=== PATIENT | female | born 1965 | race Two or more races ===

== ENCOUNTER 2020-06-16 16:46 | Emergency (ER) | payer MEDICAID, OTHER ==
[~2020-06-16] VITALS: Ht 160 cm; Wt 71.5 kg
--- NOTE | 2020-06-16 17:19 | NUR ---
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
--- NOTE | 2020-06-16 17:29 | NUR ---
PT IN GOWN ON [facility]. STATES SHE HAS HIGH BLOOD PRESSURE IN 200S. PT BP NOW IS 146/83. PT STATES SHE EXPERIENCES DIZZINESS AT HOME. NO GARZA OR VISION CHANGES. DOES NOT TAKE MEDS FOR BP. DENIES CP OR SOB.
[2020-06-16 18:00] LABS: BASOPHILS # (AUTO) 0.04 x10^3/uL (0-0.1); BASOPHILS % (AUTO) 1 % (0-1); EOSINOPHILS # (AUTO) 0.35 x10^3/uL (0-0.4); EOSINOPHILS % (AUTO) 6 % (1-7); LYMPHOCYTES # (AUTO) 2.11 x10^3/uL (1-3.4); LYMPHOCYTES % (AUTO) 39 % (22-44); MD NO; MEAN CORPUSCULAR HEMOGLOBIN 30.3 pg (27.0-34.8); MEAN CORPUSCULAR HGB CONC 32.9 g/dL (32.4-35.8); MEAN PLATELET VOLUME 7.7 fL (7.4-10.4); MONOCYTES # (AUTO) 0.39 x10^3/uL (0.2-0.8); MONOCYTES % (AUTO) 7 % (2-9); NEUTROPHILS % (AUTO) 47 % (42-75); PLATELET COUNT 212 x10^3/uL (130-400); RED BLOOD COUNT 4.52 x10^6/uL (3.82-5.3); RED CELL DISTRIBUTION WIDTH 12.6 % (9.6-15.2)
[2020-06-16 18:08] LABS: ALBUMIN 4.2 g/dL (3.4-5.0); ANION GAP 6 mmol/L (5-15); CALCIUM 9.2 mg/dL (8.5-10.1); CHLORIDE 107 mmol/L (98-107); CREATININE 0.87 mg/dL (0.55-1.02)
[2020-06-16 18:12] LABS: TROPONIN I < 0.015 ng/mL (0.000-0.045)
[2020-06-16 18:26] VITALS: BP 148/78
== END 2020-06-16 19:20 | disposition home or self-care (01) ==
LOC: ED 19:20
DX: J32.0 Chronic maxillary sinusitis (principal); R42 Dizziness and giddiness; R51.9 Headache, unspecified; H53.8 Other visual disturbances; F17.200 Nicotine dependence, unspecified, uncomplicated
CPT/HCPCS: 36415; 70450; 71045; 80048; 82040; 84484; 85025; 93005; 99285